=== PATIENT | female | born 1995 | race Caucasian/White ===

== ENCOUNTER 2016-10-01 12:45 | Emergency (ER) | payer OTHER ==
[~2016-10-01 12:45] MED LIST: ALPR.5 PO
[2016-10-01 12:47] VITALS: BP 123/74; PULSE 48; RESP 20; TEMP 98.7; O2SAT 98
[2016-10-01 13:03] VITALS: BP 116/63; PULSE 42; RESP 14; TEMP 98.4; O2SAT 99
[2016-10-01] MEDS ORDERED: SODIUM CHLOR 0.9% 1000 ML INJ 1,000 ML IV ONE (13:08)
[2016-10-01 13:09] VITALS: BP_SYST 120; BP_SYST 127; BP_SYST 129; BP_DIAS 59; BP_DIAS 68; BP_DIAS 71
--- NOTE | 2016-10-01 13:14 | PD ---
HPI Chief Complaint: Cardiac Complaint Time Seen by Provider: 12:56 Travel History International Travel<30 days: No Contact w/Intl Traveler<30days: No Traveled to known affect area: No History of Present Illness HPI The patient is a 21-year-old female who presents to the emergency department for symptomatic bradycardia. The patient has a history of bradycardia for the last 2 years, first noted bradycardia 2 years ago when she had a syncopal episode. The patient was admitted to the hospital at that time underwent echocardiogram and Holter monitor, was discharged home with sodium pills. She never underwent tilt table test, but did follow-up with the captain cannery tender on an outpatient basis. The patient denies taking any medications and her AV node blockers, does take control, but denies taking any blood pressure medications are heart rate medications. The patient recently moved to the area and is followed by the resident physician, Dr. Merritt as well as a local captain cannery tender, Dr. Rodriguez. The patient states she was at work earlier today, sustaining for 10 minutes when she became lightheaded and dizzy. The patient was noted to have a heart rate in her 30s. The patient denies any known structural heart disease and denies any history of Lyme disease or [place] measles. The patient denies any fever, chills, sweats, chest pain, or shortness of breath. She occasionally has palpitations but has no formal diagnosis of atrial fibrillation, atrial flutter, or SVT. The patient denies any current chest pain, shortness breath, nausea, vomiting, or abdominal pain. PFSH Past Medical History Heart Rhythm Problems: Yes (PALPITATIONS, BRADYCARDIA) ?: Not LMP: 09/03/16 Past Surgical History Appendectomy: Yes Social History Alcohol Use: No Tobacco Use: No Substance Use: No Allergies-Medications (Allergen,Severity, Reaction): Coded Allergies: No Known Allergies (Unverified , 09/30/16) Reported Meds & Prescriptions Reported Meds & Active Scripts Active Adderall Xr 24 HR (Amphetamine/Dextroamphetamine) 5 Mg Cap 5 Mg PO DAILY Once daily in the morning. Review of Systems Except as stated in HPI: all other systems reviewed are Neg General / Constitutional: No: Fever HENT: Positive: Lightheadedness Cardiovascular: Positive: Palpitations, Other (symptomatic bradycardia), No: Chest Pain or Discomfort, Diaphoresis, Dyspnea on exertion Respiratory: No: Shortness of Breath Gastrointestinal: No: Nausea, Vomiting, Abdominal Pain Neurologic: Positive: Dizziness Physical Exam Narrative GENERAL: Awake, alert, pleasant 21-year-old female who appears her stated age and is in no acute respiratory distress. SKIN: Focused skin assessment warm/dry. HEAD: Atraumatic. Normocephalic. EYES: Pupils equal and round. No scleral icterus. No injection or drainage. ENT: No nasal bleeding or discharge. Mucous membranes pink and moist. NECK: Trachea midline. No JVD. CARDIOVASCULAR: Regular, bradycardic with a heart rate in the 40s. No audible murmur. RESPIRATORY: No accessory muscle use. Clear to auscultation. Breath sounds equal bilaterally. GASTROINTESTINAL: Abdomen soft, non-tender, nondistended. MUSCULOSKELETAL: No obvious deformities. No clubbing. No cyanosis. No edema. NEUROLOGICAL: Awake and alert. No obvious cranial nerve deficits. Motor grossly within normal limits. Normal speech. PSYCHIATRIC: Appropriate mood and affect; insight and judgment normal. Data Data Last Documented VS Vital Signs Date Time Temp Pulse Resp B/P Pulse Ox O2 Delivery O2 Flow Rate FiO2 10/01/16 13:12 Room Air 10/01/16 13:09 42 120/59 50 127/68 58 129/71 10/01/16 13:03 98.4 14 99 Orders Complete Blood Count With Diff (10/01/16 13:08) Comprehensive Metabolic Panel (10/01/16 13:08) Magnesium (Mg) (10/01/16 13:08) Ecg Monitoring (10/01/16 13:08) Iv Access Insert/Monitor (10/01/16 13:08) Oximetry (10/01/16 13:08) Sodium Chloride 0.9% Flush (Ns Flush) (10/01/16 13:15) Sodium Chlor 0.9% 1000 Ml Inj (Ns 1000 M (10/01/16 13:08) Orthostatic Vital Signs (10/01/16 13:08) Thyroid Stimulating Hormone (10/01/16 13:08) Free Thyroxine (T4) (10/01/16 13:08) Electrocardiogram (10/01/16 13:01) Labs Laboratory Tests Test 10/01/16 13:15 White Blood Count 6.7 TH/MM3 Red Blood Count 4.68 MIL/MM3 Hemoglobin 14.0 GM/DL Hematocrit 41.2 % Mean Corpuscular Volume 88.1 FL Mean Corpuscular Hemoglobin 29.9 PG Mean Corpuscular Hemoglobin 33.9 % Concent Red Cell Distribution Width 12.8 % Platelet Count 193 TH/MM3 Mean Platelet Volume 8.9 FL Neutrophils (%) (Auto) 59.9 % Lymphocytes (%) (Auto) 27.3 % Monocytes (%) (Auto) 11.7 % Eosinophils (%) (Auto) 0.8 % Basophils (%) (Auto) 0.3 % Neutrophils # (Auto) 4.0 TH/MM3 Lymphocytes # (Auto) 1.8 TH/MM3 Monocytes # (Auto) 0.8 TH/MM3 Eosinophils # (Auto) 0.1 TH/MM3 Basophils # (Auto) 0.0 TH/MM3 CBC Comment DIFF FINAL Differential Comment Sodium Level 137 MEQ/L Potassium Level 4.1 MEQ/L Chloride Level 106 MEQ/L Carbon Dioxide Level 25.4 MEQ/L Anion Gap 6 MEQ/L Blood Urea Nitrogen 23 MG/DL Creatinine 1.14 MG/DL Estimat Glomerular Filtration 59 ML/MIN Rate Random Glucose 84 MG/DL Calcium Level 9.2 MG/DL Magnesium Level 2.1 MG/DL Total Bilirubin 0.3 MG/DL Aspartate Amino Transf 23 U/L (AST/SGOT) Alanine Aminotransferase 23 U/L (ALT/SGPT) Alkaline Phosphatase 53 U/L Total Protein 7.6 GM/DL Albumin 3.9 GM/DL Free Thyroxine 1.12 NG/DL Thyroid Stimulating Hormone 1.780 uIU/ML [address] [place] [address] Medical Decision Making Medical Screen Exam Complete: Yes Emergency Medical Condition: Yes Medical Record Reviewed: Yes Interpretation(s) EKG reveals sinus bradycardia with a rate of 42. No ischemic changes noted. No evidence of WPW or Brugada syndrome. Laboratory Tests Test 10/01/16 13:15 White Blood Count 6.7 TH/MM3 Red Blood Count 4.68 MIL/MM3 Hemoglobin 14.0 GM/DL Hematocrit 41.2 % Mean Corpuscular Volume 88.1 FL Mean Corpuscular Hemoglobin 29.9 PG Mean Corpuscular Hemoglobin 33.9 % Concent Red Cell Distribution Width 12.8 % Platelet Count 193 TH/MM3 Mean Platelet Volume 8.9 FL Neutrophils (%) (Auto) 59.9 % Lymphocytes (%) (Auto) 27.3 % Monocytes (%) (Auto) 11.7 % Eosinophils (%) (Auto) 0.8 % Basophils (%) (Auto) 0.3 % Neutrophils # (Auto) 4.0 TH/MM3 Lymphocytes # (Auto) 1.8 TH/MM3 Monocytes # (Auto) 0.8 TH/MM3 Eosinophils # (Auto) 0.1 TH/MM3 Basophils # (Auto) 0.0 TH/MM3 CBC Comment DIFF FINAL Differential Comment Sodium Level 137 MEQ/L Potassium Level 4.1 MEQ/L Chloride Level 106 MEQ/L Carbon Dioxide Level 25.4 MEQ/L Anion Gap 6 MEQ/L Blood Urea Nitrogen 23 MG/DL Creatinine 1.14 MG/DL Estimat Glomerular Filtration 59 ML/MIN Rate Random Glucose 84 MG/DL Calcium Level 9.2 MG/DL Magnesium Level 2.1 MG/DL Total Bilirubin 0.3 MG/DL Aspartate Amino Transf 23 U/L (AST/SGOT) Alanine Aminotransferase 23 U/L (ALT/SGPT) Alkaline Phosphatase 53 U/L Total Protein 7.6 GM/DL Albumin 3.9 GM/DL Free Thyroxine 1.12 NG/DL Thyroid Stimulating Hormone 1.780 uIU/ML 3rd Gen Differential Diagnosis Differential diagnosis includes symptomatic bradycardia, hypothyroidism, hypokalemia, hyperkalemia, hypocalcemia, hypomagnesemia, structural heart disease. Narrative Course IV was established, labs are drawn and sent, and the patient was placed on cardiac telemetry monitoring and continuous pulse oximetry monitoring. EKG was ordered and interpreted. Orthostatic vital signs were obtained. The patient was administered 1 L of IV fluids. TSH and free T4 were sent to lab. A call was placed to Dr. Rodriguez at 1:20 PM, he is on vacation, therefore, the on-call physician was paged. I discussed the patient with Dr. Kohler who stated he could evaluate the patient in the office today. The patient will be discharged and we will fax the results of Dr. Kohler's office. The patient will also be prescribed Adderall as she may have symptomatic bradycardia from neurocardiogenic syncope/vasovagal override, and is not responding to the sodium chloride pills. Labs are unremarkable, TSH and potassium are normal. Patient will be seen in the captain cannery tender's office today. Diagnosis Primary Impression: Symptomatic sinus bradycardia Patient Instructions: General Instructions Additional Instructions: Adderall XR as directed. Follow-up with Dr. Kohler this afternoon. Return if symptoms worsen or progress. Med/Other Pt SpecificInfo: Prescription(s) given Scripts Amphetamine-Dextroamphetamine ER 24 HR (Adderall Xr 24 HR)5 Mg Cap5 Mg PO DAILY #30 CAP Ref 0 Once daily in the morning. Prov:Yaakov Merino MD 10/01/16 Disposition: 01 DISCHARGE HOME Condition: Stable Yaakov Merino MD Oct 01, 2016 13:14
[2016-10-01] MEDS ORDERED: SODIUM CHLORIDE 0.9% FLUSH 10 ML FLUSH IVF PRN (13:15)
[2016-10-01 13:41] LABS: BASOPHIL % 0.3 % (0.0-2.0); EOSINOPHIL # 0.1 TH/MM3 (0-0.4); EOSINOPHIL % 0.8 % (0.0-4.0); HEMATOCRIT 41.2 % (35.0-46.0); HEMO FLAGS DIFF FINAL; LYMPH % 27.3 % (9.0-44.0); LYMPHOCYTE # 1.8 TH/MM3 (1.0-4.8); MEAN CELL VOLUME 88.1 FL (80.0-100.0); MEAN CORPUSCULAR HEMOGLOBIN 29.9 PG (27.0-34.0); MEAN CORPUSCULAR HGB CONC 33.9 % (32.0-36.0); MONO % 11.7 % (0.0-8.0); NEUT % 59.9 % (16.0-70.0); PLATELET COUNT 193 TH/MM3 (150-450); RED BLOOD COUNT 4.68 MIL/MM3 (4.00-5.30); RED CELL DISTRIBUTION WIDTH 12.8 % (11.6-17.2); WHITE BLOOD COUNT 6.7 TH/MM3 (4.0-11.0)
[2016-10-01] MEDS ORDERED: ADDE5XR PO (13:57)
--- NOTE | 2016-10-01 14:02 | EKG ---
Date Performed: 10/01/2016 Time Performed: 13:01:47 PTAGE: 21 years EKG: SINUS BRADYCARDIA BORDERLINE ECG NO PREVIOUS TRACING DOCTOR: Oswald Dee Interpretating Date/Time 10/01/2016 14:00:19
[2016-10-01 14:09] LABS: ALKALINE PHOSPHATASE 53 U/L (45-117); ALT (GPT) 23 U/L (10-53); FREE T4 1.12 NG/DL (0.76-1.46); TOTAL BILIRUBIN ADULT 0.3 MG/DL (0.2-1.0)
[2016-10-01 14:15] LABS: ANION GAP 6 MEQ/L (5-15); AST (GOT) 23 U/L (15-37); BICARBONATE 25.4 MEQ/L (21.0-32.0); BLOOD UREA NITROGEN 23 MG/DL (7-18); CHLORIDE 106 MEQ/L (98-107); GLOMERULAR FILTRATION RATE 59 ML/MIN (>89); MAGNESIUM 2.1 MG/DL (1.5-2.5); POTASSIUM 4.1 MEQ/L (3.5-5.1); SODIUM (NA) 137 MEQ/L (136-145)
== END 2016-10-01 14:15 | disposition home or self-care (01) ==
LOC: NEPE 12:45
DX: R00.1 Bradycardia, unspecified (principal); R42 Dizziness and giddiness
CPT/HCPCS: 80053; 83735; 84439; 84443; 85025; 93005; 99284; J7030